=== PATIENT | male | born 1995 | race Caucasian/White ===

== ENCOUNTER 2017-06-18 17:45 | Emergency (ER) | payer BC ==
[2017-06-18] MEDS ORDERED: Albuterol/Ipratropium 3.0-0.5 MG/3 ML Neb Soln NEB ONE (18:07)
--- NOTE | 2017-06-18 18:20 | EDM.PDOC ---
ED HPI GENERAL MEDICAL PROBLEM - General Stated Complaint: COUGHING UP BLOOD Time Seen by Provider: 06/18/17 17:45 Source of Information: Reports: Patient, Family History Limitations: Reports: Respiratory Distress - History of Present Illness INITIAL COMMENTS - FREE TEXT/NARRATIVE: 21 y.o.w.m with a h/o asthma, did not use his inhalers in the past few days, come to the ed due due coughing up blood, intermittently, since this morning. Pt denies using tobacco, but is exposed to smokers at work. No F/C/N/V or any other acute medical issues, denied SOB BP 122/82 Temp 36.2 RR 16 O2 sat 98% on RA, pulse 62 bpm Onset: Unknown/Unsure Onset Date: 06/18/17 Onset Time: 13:00 Duration: Hour(s):, Intermittent Location: Reports: Chest Quality: Reports: Burning Severity: Mild Improves with: Reports: None Worsens with: Reports: None Context: Reports: Other (coughing off blood) Associated Symptoms: Reports: Other (sob) - Related Data Allergies Allergy/AdvReac Type Severity Reaction Status Date / Time No Known Allergies Allergy Verified 06/18/17 18:36 Home Meds: Home Meds Albuterol Sulfate [Ventolin Hfa] 1 puff INH ASDIRECTED PRN 06/18/17 [History] Ciprofloxacin HCl [Cipro] 500 mg PO BID #20 tablet 06/18/17 [Rx] Prednisone [IJD: predniSONE] 20 mg PO WITHBREAKFAST #10 tab 06/18/17 [Rx] Past Medical History Respiratory History: Reports: SOB Neurological History: Reports: Other (See Below) Other Neuro History: sleep apnea on occasion Social & Family History - Tobacco Use Smoking Status *Q: Never Smoker - Caffeine Use Caffeine Use: Reports: Coffee, Soda - Recreational Drug Use Recreational Drug Use: No ED ROS GENERAL - Review of Systems Review Of Systems: See Below Constitutional: Reports: No Symptoms HEENT: Reports: No Symptoms Respiratory: Reports: Wheezing, Hemoptysis Cardiovascular: Reports: No Symptoms Endocrine: Reports: No Symptoms GI/Abdominal: Reports: No Symptoms : Reports: No Symptoms Musculoskeletal: Reports: No Symptoms Skin: Reports: No Symptoms Neurological: Reports: No Symptoms Psychiatric: Reports: No Symptoms Hematologic/Lymphatic: Reports: No Symptoms Immunologic: Reports: No Symptoms ED EXAM, GENERAL - Physical Exam Exam: See Below Exam Limited By: No Limitations General Appearance: Alert, WD/WN, Mild Distress Eye Exam: Bilateral Eye: Normal Inspection Ears: Normal External Exam Ear Exam: Bilateral Ear: Auricle Normal Nose: Normal Inspection, Normal Mucosa Throat/Mouth: Normal Inspection, Normal Lips Head: Atraumatic, Normocephalic Neck: Normal Inspection, Supple, Non-Tender, Full Range of Motion Respiratory/Chest: No Respiratory Distress, Rhonchi, Wheezing Cardiovascular: Normal Peripheral Pulses, Regular Rate, Rhythm, No Edema, No Gallop, No JVD, No Murmur, No Rub GI/Abdominal: Normal Bowel Sounds, Soft, Non-Tender, No Organomegaly, No Distention, No Abnormal Bruit, No Mass, Pelvis Stable (Male) Exam: Deferred Rectal (Males) Exam: Deferred Back Exam: Normal Inspection, Full Range of Motion Extremities: Normal Inspection, Normal Range of Motion, Non-Tender, No Pedal Edema, Normal Capillary Refill Neurological: Alert, Oriented, CN II-XII Intact, Normal Cognition, Normal Gait Psychiatric: Normal Affect, Normal Mood Skin Exam: Warm, Dry, Intact, Normal Color, No Rash Lymphatic: No Adenopathy Course - Vital Signs Text/Narrative:: 21 y.o.w.m with a h/o asthma, did not use his inhalers in the past few days, come to the ed due due coughing up blood, intermittently, since this morning. Pt denies using tobacco, but is exposed to smokers at work. No F/C/N/V or any other acute medical issues, denied SOB, denies bloody urine, pt does nottake blood thinners, ASA etc. BP 122/82 Temp 36.2 RR 16 O2 sat 98% on RA, pulse 62 bpm PE: WNWD WM with intem. hemoptosis and exp wheezes Labs: CBC: WBC 8.9, no left shift, HGB 17.1 HCT 51.9 BMP was nl, INR 1.15 Imaging: CXR NAD, official report is pending Impression: intermittent hemoptosis, mild, Bronchitis, Asthma exacerbation Tx: Duoneb, Bactrim DS, Prednison Impression: Improved, lungs were clear. No hemoptosis while here in the ed. Plan: D/C with instructions Last Recorded V/S: Last Vital Signs Temp 36.2 C 06/18/17 18:40 Pulse 62 06/18/17 18:40 Resp 16 06/18/17 18:40 BP 122/82 06/18/17 18:40 Pulse Ox 98 06/18/17 18:40 - Orders/Labs/Meds Orders: Active Orders 24 hr Category Date Time Status RT Aerosol Therapy [RC] ASDIRECTED Care 06/18/17 18:07 Active CXR [Chest 2V] [CR] Stat Exams 06/18/17 18:05 Taken Labs: Laboratory Tests 06/18/17 06/18/17 06/18/17 Range/Units 18:20 18:20 18:20 WBC 8.9 (4.5-12.0) X10-3/uL RBC 6.35 H (4.30-5.75) x10(6)uL Hgb 17.1 H (11.5-15.5) g/dL Hct 51.9 H (30.0-51.3) % MCV 81.7 (80-96) fL MCH 27.0 L (27.7-33.6) pg MCHC 33.1 (32.2-35.4) g/dL RDW 11.7 (11.5-15.5) % Plt Count 257 (125-369) X10(3)uL MPV 8.4 (7.4-10.4) fL Neut % (Auto) 55.6 (46-82) % Lymph % (Auto) 30.4 (13-37) % [place] % (Auto) 6.8 (4-12) % Eos % (Auto) 6 H (1.0-5.0) % Baso % (Auto) 1 (0-2) % Neut # (Auto) 4.9 (1.6-8.3) # Lymph # (Auto) 2.7 (0.6-5.0) # [place] # (Auto) 0.6 (0.0-1.3) # Eos # (Auto) 0.6 (0.0-0.8) # Baso # (Auto) 0.1 (0.0-0.2) # PT 11.6 H (8.7-11.1) INR 1.15 H (0.89-1.13) Sodium 140 (135-145) mmol/L Potassium 3.8 (3.5-5.3) mmol/L Chloride 104 (100-110) mmol/L Carbon Dioxide 27 (23-29) mmol/L BUN 14 (5-20) mg/dL Creatinine 0.9 (0.6-1.3) mg/dL Est Cr Clr Drug Dosing TNP Estimated GFR (MDRD) > 60 (>60) BUN/Creatinine Ratio 15.6 (9-20) Glucose 81 (80-116) mg/dL Calcium 9.8 (8.6-10.2) mg/dL Meds: Medications Discontinued Medications Generic Name Dose Route Start Last Admin Trade Name Freq PRN Reason Stop Dose Admin Albuterol/Ipratropium 3 ml 06/18/17 18:07 06/18/17 18:45 Duoneb 3.0-0.5 Mg/3 Ml NEB 06/18/17 18:08 3 ml ONETIME ONE Administration Prednisone 40 mg 06/18/17 18:48 06/18/17 18:54 Prednisone PO 06/18/17 18:49 40 mg ONETIME STA Administration Trimethoprim/Sulfamethoxazole 1 tab 06/18/17 18:47 06/18/17 18:54 Septra Ds PO 06/18/17 18:48 1 tab ONETIME ONE Administration Departure - Departure Time of Disposition: 18:49 Disposition: Home, Self-Care 01 Condition: Good Clinical Impression: Hemoptysis, unspecified, Bronchitis Asthma attack Qualifiers: Asthma severity: mild Asthma persistence: intermittent Qualified Code(s): J45.21 - Mild intermittent asthma with (acute) exacerbation - Discharge Information Prescriptions: Ciprofloxacin HCl [Cipro] 500 mg PO BID #20 tablet Prednisone [IJD: predniSONE] 20 mg PO WITHBREAKFAST #10 tab Referrals: Marcela Lopze MD [Primary Care Provider] - Forms: ED Return to Work/School Form Additional Instructions: Please use your albuterol inhaler every 4 hours as needed, please take the Abx and prednison as recommended. Please f/u in next 2-3 days, please come back if your symptoms get worse acutely - My Orders Last 24 Hours: My Active Orders 06/18/17 18:05 CXR [Chest 2V] [CR] Stat 06/18/17 18:07 RT Aerosol Therapy [RC] ASDIRECTED - Assessment/Plan Last 24 Hours: My Active Orders 06/18/17 18:05 CXR [Chest 2V] [CR] Stat 06/18/17 18:07 RT Aerosol Therapy [RC] ASDIRECTED
[2017-06-18] MEDS ORDERED: Sulfamethoxazole/Trimethoprim 800-160 MG Tab PO ONE (18:47)
[2017-06-18] MEDS ORDERED: predniSONE 10 MG Tab PO STA (18:48)
[2017-06-18 21:48] VITALS: BP 122/82
--- NOTE | 2017-06-19 10:53 | CR ---
INDICATION: Coughing up blood. CHEST: PA and lateral views of the chest, 06/18/2017, revealed the heart, mediastinum, and bony thorax to be unremarkable. An active infiltrate or effusion was not identified. IMPRESSION: No active disease. If symptoms persist, CT chest with contrast may be warranted. Correlate clinically. MTDD
== END 2017-06-18 19:10 | disposition home or self-care (01) ==
LOC: FB.ED 17:45
DX: R04.2 Hemoptysis (principal); J45.21 Mild intermittent asthma with (acute) exacerbation; J40 Bronchitis, not specified as acute or chronic
CPT/HCPCS: 36415; 71020; 80048; 85025; 85610; 94640; 99283; A9270; J7620